=== PATIENT | female | born 1940 | race Caucasian/White ===

== ENCOUNTER → 2017-09-04 | Outpatient (CLI) | payer MEDICARE ==
[~2017-09-04] MED LIST: AMOXICILLIN 8751 TAB PO; CALCIUM CARB W/1 TA1 PO; CALCIUM CARBONATE; CALTRATE 600 +1 TAB PO; CITRACAL + D CA1 TAB PO; COZAAR50 MG PO; CRANBERRY FRUI425 MG PO; CRANBERRY425 MG PO; DITROPAN 5MG TAB5 MG PO; FLOMAX 0.40.4 MG/CAP PO; FOSAMAX70 MG PO; GLUCOSAMINE 1000 PO; GLUCOSAMINE S1000 MG PO; LEVOTHYROXIN0.088 MG PO; LEVOXYL0.075 MG PO; LOPRESSOR 225 MG/TAB PO; MACROBID 1100 MG/CAP; MULTIVITAMIN FO1 CAP PO; NORCO 325 MG-51 TAB PO; PYRIDIUM 100MG100 MG PO; SENOKOT8.6 MG PO; SIMVASTATIN20 MG PO; VESICARE5 MG PO; VITAMIN D1000 IU PO; WOMEN'S DAILY1 TAB PO; ZOCOR 20MG20 MG PO
== END ==
LOC: MC.RAD 10:11
DX: Z12.31 Encounter for screening mammogram for malignant neoplasm of breast (principal)

== ENCOUNTER 2017-12-19 07:05 | Observation (INO) | payer MEDICARE ==
[~2017-12-19] VITALS: Ht 154.9 cm; Wt 55.7 kg
[2017-12-19] VITALS (11 sets, daily range): BP systolic 110–159; BP diastolic 45–61; PULSE 69–84; TEMP 87–98
[~2017-12-19 07:05] MED LIST changes: -DITROPAN 5MG TAB5 MG PO; +DITROPAN XL10 MG PO; -VITAMIN D1000 IU PO; +VITAMIN D31000 I1 PO
[2017-12-19] MEDS ORDERED: ESTRACE0.5 MG (07:41)
[2017-12-19 08:01] LABS: COLLECTION METHOD CLEAN CATCH
[2017-12-19 08:07] LABS: BASO % 0.2 % (0.0-2.0); EOS % 0.3 % (0-4.0); GRAN # 12.9 (1.4-6.5); GRAN % 83.6 % (42.2-75.2); HEMATOCRIT 48.3 % (37.0-47.0); HEMOGLOBIN 15.6 g/dl (12.5-16.0); LYMPH # 1.6 (1.2-3.4); LYMPH % 10.2 % (20.0-51.0); MEAN CELL VOLUME 94 fl (80.0-100.0); MEAN CORPUSCULAR HEMOGLOBIN 30 pg (27.0-31.0); MEAN CORPUSCULAR HGB CONC 32 g/dl (33.0-37.0); MEAN PLATELET VOLUME 11.4 fl (7.4-10.4); MONO # 0.8 (0.1-0.6); MONO % 5.2 % (1.7-9.3); PLATELET COUNT 192 K/mm3 (130-400); RED BLOOD COUNT 5.15 M/mm3 (4.10-5.30); REDCELL DISTRIBUTION WIDTH-CV 12.5 % (11.5-14.5)
[2017-12-19 08:10] LABS: PH 6 (5-8); URINE APPEARANCE Clear; URINE BACTERIA None Seen /hpf; URINE BILIRUBIN Negative (NEGATIVE); URINE BLOOD Negative (NEGATIVE); URINE COLOR Yellow; URINE GLUCOSE Negative (NEGATIVE); URINE KETONE Negative (NEGATIVE); URINE LEUKOCYTE ESTERASE Negative (NEGATIVE); URINE NITRATE Negative (NEGATIVE); URINE PROTEIN(semi-quant) Negative (NEGATIVE); URINE RBC 0-2 /hpf; URINE UROBILINOGEN Negative (NEGATIVE)
[2017-12-19 08:17] LABS: ALBUMIN 4.6 gm/dL (3.5-5.0); BILIRUBIN,TOTAL 0.8 mg/dL (0.0-1.0); C-REACTIVE PROTEIN 2.9 mg/dL (0.0-0.9); CALCIUM 9.4 mg/dL (8.4-10.2); CREATININE, serum 0.55 mg/dL (0.52-1.25); POTASSIUM 3.6 mmol/L (3.4-5.0); TOTAL PROTEIN 8.2 gm/dL (6.4-8.2)
[2017-12-20 01:46] VITALS: BP 130/56; PULSE 61; TEMP 97.4
[2017-12-20 05:20] VITALS: BP 112/48; PULSE 54; TEMP 97.6
[2017-12-20 07:41] VITALS: BP 119/52; PULSE 57; TEMP 97.4
[2017-12-20 10:05] VITALS: BP 145/51; PULSE 68
[2017-12-20] MEDS ORDERED: NORCO 325 MG-51 TAB PO (10:38)
[2017-12-20] MEDS ORDERED: AMOXICILLIN 8751 TAB PO (10:38)
[2017-12-20 11:12] VITALS: BP 119/88; PULSE 66; TEMP 98.1
[2017-12-26] MEDS ORDERED: TOPROL XL100 MG PO (13:43)
== END 2017-12-20 13:45 | disposition home or self-care (01) ==
LOC: COL.ER 07:18 → SURG 09:13
PROVIDERS: Emergency Medicine
DX: K35.80 Unspecified acute appendicitis (principal); K38.1 Appendicular concretions; E78.5 Hyperlipidemia, unspecified; Z88.1 Allergy status to other antibiotic agents; Z88.2 Allergy status to sulfonamides; Z88.8 Allergy status to other drugs, medicaments and biological substances; Z88.6 Allergy status to analgesic agent
CPT/HCPCS: A9284; G0378; J0694; J0696; J1100; J1650; J1885; J2270; J2405; J2543; J2704; J2710; J2765; J3010; J7030; J7120; Q9967

== ENCOUNTER → 2018-02-14 | Outpatient (CLI) | payer MEDICARE ==
[~2018-02-14] MED LIST changes: +ESTRACE0.5 MG; +TOPROL XL100 MG PO
== END ==
LOC: COL.RAD 09:29
DX: D17.9 Benign lipomatous neoplasm, unspecified (principal)
CPT/HCPCS: A9585

== ENCOUNTER → 2019-12-19 | Outpatient (CLI) | payer MEDICARE | LOC: MC.RAD 14:51 | DX: Z12.31 Encounter for screening mammogram for malignant neoplasm of breast (principal) ==

== ENCOUNTER → 2021-01-12 | Outpatient (CLI) | payer MEDICARE | LOC: MC.RAD | DX: Z12.31 Encounter for screening mammogram for malignant neoplasm of breast (principal) ==